=== PATIENT | female | born 1960 | race Caucasian/White ===

== ENCOUNTER → 2019-08-27 15:20 | Outpatient (BNVA) | payer MEDICARE, MEDICAID, SELFPAY | PROVIDERS: Family Provider Family Medicine; PCP Family Medicine; Visit Provider Specialist | DX: G62.9 Polyneuropathy, unspecified (principal); G31.84 Mild cognitive impairment of uncertain or unknown etiology; Z87.891 Personal history of nicotine dependence | CPT/HCPCS: 99213 ==

== ENCOUNTER 2021-10-21 | Outpatient (RCR) | payer MEDICARE, MEDICAID, SELFPAY | END 2021-11-20 23:59 | disposition home or self-care (01) | LOC: GOT | PROVIDERS: Family Provider Family Medicine; PCP Family Medicine; Referring Provider Orthopaedic Surgery Hand Surgery; Visit Provider Orthopaedic Surgery Hand Surgery | DX: M18.11 Unilateral primary osteoarthritis of first carpometacarpal joint, right hand (principal); Z47.89 Encounter for other orthopedic aftercare; Z98.890 Other specified postprocedural states | CPT/HCPCS: 97110; 97140; 97167 ==

== ENCOUNTER 2021-11-21 06:00 | Outpatient (RCR) | payer MEDICARE, MEDICAID, SELFPAY | END 2021-12-21 23:59 | disposition home or self-care (01) | LOC: GOT 06:00 | PROVIDERS: PCP Family Medicine; Visit Provider Orthopaedic Surgery Hand Surgery | DX: M18.11 Unilateral primary osteoarthritis of first carpometacarpal joint, right hand (principal) | CPT/HCPCS: 97110; 97140 ==